=== PATIENT | female | born 1980 | race Caucasian/White ===

== ENCOUNTER → 2017-02-19 | Outpatient (CLI) | payer BC ==
[2017-02-19 11:59] LABS: Follicle Stimulating Hormone 5.5 mIU/mL; Prolactin 6.7 ng/mL (3.0-18.6)
[2017-02-19 12:56] LABS: Appearance,Urine Clear (Clear); Bilirubin,Urine Negative (Negative); Glucose,Urine (UA) Negative (Negative); Ketones,Urine Negative (Negative); Leukocyte Esterase,Urine Negative (Negative); Nitrite,Urine Negative (Negative); Protein,Urine Negative (Negative); Specific Gravity,Urine 1.015 (1.001-1.035); UA Billing (MACRO vs. MICRO) CHEM; Urobilinogen,Urine <2.0 mg/dL (<2.0)
== END | disposition home or self-care (01) ==
LOC: LABWHC1 10:50
PROVIDERS: ATTEND Obstetrics & Gynecology
DX: N92.0 Excessive and frequent menstruation with regular cycle (principal)
CPT/HCPCS: 36415; 81003; 83001; 83002; 84146; 84443; 87086; 87491; 87591

== ENCOUNTER → 2017-06-09 | Outpatient (CLI) | payer BC ==
[2017-06-09 14:51] LABS: Basophils % (A) 1 %; CH 34.9; CHCM 36.3; Eosinophils # (A) 0.2 k/uL (0-0.7); Eosinophils % (A) 2 %; HCT 45.2 % (34.0-46.0); HDW 2.24; HGB 15.7 gm/dL (11.4-16.0); Luc # (Auto) 0.12; Luc % (Auto) 2; Lymphocytes # (A) 1.9 k/uL (1.0-4.8); Lymphocytes % (A) 27 %; MCH 33.4 pg (25.0-35.0); MCHC 34.6 g/dL (31.0-37.0); MCV 96.4 fL (80.0-100.0); Mean Platelet Volume 7.6; Monocytes # (A) 0.5 k/uL (0-1.0); Monocytes % (A) 7 %; Neutrophils # (A) 4.2 k/uL (1.3-7.7); Neutrophils % (A) 62 %; RBC 4.69 m/uL (3.80-5.40); RDW 12.8 % (11.5-15.5); WBC 6.8 k/uL (3.8-10.6); WBC (Perox) 7.29
[2017-06-09 15:12] LABS: Anion Gap 12 mmol/L; Blood Urea Nitrogen 14 mg/dL (7-17); Calcium 10.3 mg/dL (8.4-10.2); Carbon Dioxide 23 mmol/L (22-30); Chloride 107 mmol/L (98-107); Glucose 95 mg/dL (74-99); Non-African American GFR(MDRD) >60 (>60 ml/min/1.73 sqM); Potassium 4.8 mmol/L (3.5-5.1); Sodium 142 mmol/L (137-145)
== END | disposition home or self-care (01) ==
LOC: LABWHC1 14:25
PROVIDERS: ATTEND Obstetrics & Gynecology
DX: Z01.818 Encounter for other preprocedural examination (principal)
CPT/HCPCS: 80048; 85025

== ENCOUNTER 2017-06-16 06:01 | Observation (INO) | payer BC ==
[2017-06-09 16:35] VITALS: BMI 20.9
[~2017-06-16 06:01] MED LIST: DEXAMETHASONE SOD PHOSPHATE 10 MG/ML 1 ML VIAL IV ONE; MIDAZOLAM 2 MG/2 ML VIAL IV PRN; ONDANSETRON 4 MG/2 ML VIAL IVP ONE; SCOPOLAMINE 1.5MG/72HR PATCH TRANSDERM ONE; ceFAZolin 2 GM in SODIUM CHLORIDE 0.9% 100 ML IVPB ONE
[2017-06-16] MEDS: LACTATED RINGERS 1,000 ML IV SCH ×2 (06:34→14:09)
[2017-06-16] MEDS ORDERED: LIDOCAINE 1% 20 ML VIAL (10MG/ML) FOR IV START INTRADERMA ONE (06:34)
--- NOTE | 2017-06-16 07:38 | P.HPOB ---
History of Present Illness H&P Date: 06/16/17 Chief Complaint: Pelvic pain Millie is a 36-year-old female with a history of pelvic pain. She has dysmenorrhea and passes golfball size clots with her menses over the last year. Symptoms have worsened and his got to the point where she is unable to function when she is on her cycles the pain is so bad. She is scheduled for robotic-assisted laparoscopic hysterectomy with removal of fallopian tubes possible PERRY possible bilateral oophorectomy risks/benefits/alternatives reviewed with the patient in detail and did include but were not limited to damage to bladder, bowel, vascular injuries, nerve injuries, bleeding, infection. On physical exam vital signs are stable and afebrile. Heart regular , lungs clear, extremities without pain. Abdomen is soft positive bowel sounds are noted. Pelvic exam reveals significant pain with exam there is no specific cervical motion tenderness but overall uterus on palpation causes her significant pain. Assessment pelvic pain. Plan robotic-assisted laparoscopic hysterectomy with bilateral salpingectomy PERRY/bso Past Medical History Past Medical History: No Reported History Additional Past Medical History / Comment(s): UP TO URINATE IN NOC. HEAVY MENSES, PELVIC PAIN. History of Any Multi-Drug Resistant Organisms: None Reported Past Surgical History: Breast Surgery, Tubal Ligation Additional Past Surgical History / Comment(s): LAPAROSCOPY, D&C, LEFT BREAST BIOPSY Past Anesthesia/Blood Transfusion Reactions: Motion Sickness, Postoperative Nausea & Vomiting (PONV) Additional Past Anesthesia/Blood Transfusion Reaction / Comment(s): SEVERE PONV. Smoking Status: Current some day smoker - Past Family History Mother Family Medical History: No Reported History Medications and Allergies Home Medications Medication Instructions Recorded Confirmed Type ALPRAZolam [Xanax] 0.25 mg PO BID PRN 06/09/17 06/16/17 History Naproxen [Naprosyn] 500 mg PO Q12HR PRN 06/09/17 06/09/17 History Stool Softner 1 tab PO DAILY PRN 06/09/17 History Allergies Allergy/AdvReac Type Severity Reaction Status Date / Time amoxicillin Allergy Rash/Hives Verified 06/16/17 06:16 latex Allergy Rash/Hives/Swells Verified 06/16/17 06:16 Up Exam Osteopathic Statement: *. No significant issues noted on an osteopathic structural exam other than those noted in the History and Physical/Consult. - Vital Signs Vital signs: Vital Signs Temp Pulse Resp BP Pulse Ox 06/16/17 06:13 98.6 F 89 16 113/76 99
[2017-06-16] MEDS ORDERED: MIDAZOLAM 2 MG/2 ML VIAL ONE (07:43)
[2017-06-16] MEDS ORDERED: NEOSTIGMINE 1 MG/ML 10 ML VIAL ONE (07:43)
[2017-06-16] MEDS ORDERED: fentaNYL (PF) 50 MCG/ML 2 ML AMP ONE (07:43)
[2017-06-16] MEDS ORDERED: ROCURONIUM BROMIDE 10 MG/ML 10 ML VIAL IV ONE (07:43)
[2017-06-16] MEDS ORDERED: PROPOFOL 10 MG/ML 20 ML VIAL IV ONE (07:43)
[2017-06-16] MEDS ORDERED: GLYCOPYRROLATE 0.2 MG/ML 2 ML VIAL ONE (07:43)
[2017-06-16] MEDS ORDERED: BUPIVACAINE (PF) 0.25% 30 ML VIAL SQ ONE (08:03)
[2017-06-16] MEDS ORDERED: ONDANSETRON 4 MG/2 ML VIAL IVP PRN (09:04)
[2017-06-16] MEDS ORDERED: Acetaminophen-Codeine 300-30mg TAB PO PRN (09:04)
[2017-06-16] MEDS ORDERED: SIMETHICONE 80 MG CHEWABLE PO PRN (09:04)
--- NOTE | 2017-06-16 09:16 | P.OP ---
Date of Procedure: 06/16/17 Preoperative Diagnosis: Pelvic pain Postoperative Diagnosis: Same with adhesions to the right ovary to the pelvic sidewall Procedure(s) Performed: Robotic-assisted laparoscopic hysterectomy with right salpingo-oophorectomy and left salpingectomy Anesthesia: ROSANNA Surgeon: Abebe Pike Junior Accountant Bookkeeper #1: Radha Angeles Estimated Blood Loss (ml): 25 IV fluids (ml): 700 Urine output (ml): 500 Pathology: other (Uterus, cervix, bilateral fallopian tubes and right ovary) Condition: stable Disposition: floor Operative Findings: Right ovary was firmly adherent to the right pelvic sidewall was actually attached quite strongly to the right pelvic sidewall in and removing the the fallopian tube and trying to remove the ovary off the sidewall the decision to remove the ovary was made as her pain was coming from this area and this type of adhesion and the weight was draped across the tissues adding tension likely was her source of pain Description of Procedure: Patient was taken to the operating suite where a general anesthetic was found be adequate. She was prepped and draped in the normal sterile fashion placed in dorsal lithotomy position. Initially a weighted speculum was inserted into the vagina and anterior lip the cervix identified and grasped with a single- tooth tenaculum and the uterus was sounded to 9 cm and the cup sizes spent be 3 cm. Frida manipulator was then inserted without difficulty and the Haney cath was placed. Other instruments were then removed. There were sutures placed at 3 and 9 hands clock position to assist in removal of the uterus. Once this was accomplished gloves were changed and attention was turned to the abdominal portion procedure. 2 mL of quarter percent Marcaine were then injected periumbilically and through this injected anesthetic a 5 mm skin incision was made and through this incision under direct visualization with an optical trocar and sleeve the camera was inserted. Once peritoneal placement was assured gas was left fully insufflate the abdomen and patient was placed in steep Trendelenburg position. Observations pelvis were then noted. There was some light adhesions along the left sigmoid colon and the nasal salpinx area these were bluntly and sharply dissected free. Observations the right ovary were noted right ovary was firmly attached to the right pelvic sidewall and on tension from the uterus. As this is the specific area where her pain was a decision to remove the ovary was made. First however the left fallopian tube was elevated and the nasal Salpinx tissue was cauterized and cut dissecting back to the utero-ovarian ligament which was cauterized and cut preserving the left ovary. Once this was accomplished round ligament was cauterized and cut and sterilization of the lateral side of the left side of uterus was done. Blood vessels were then cauterized. Bladder flap was then identified elevated and entered with Metzenbaum scissors. Undermining this tissue with [place] grasper was then done and the Metzenbaum scissors were used to incise the tissue across the face of the uterus and the bladder was dissected out of the operative field. Attention was then turned the right side of the uterus the infundibula pelvic lid was then identified elevated as best as possible and due to how tightly the ovary was adherent to the tissues cauterized tissue was cut and multiple small bites were taken to make sure that we are well away from the ureter and any vascularity. Once this was accomplished this tissue was dissected back through the broad ligament tissues freeing the ovary and then separately the fallopian tube had to be dissected away from the pelvic sidewall as well as it had strong adhesions to this tissue as well. Once this was a done the round ligament was cauterized and transected and skeletonization of the right side of the uterus was then done. Once this was accomplished right vessels were also cauterized. Uterus is then retroverted and cup was identified. Bladder was verified out of the operative field and an anterior colpotomy was then made. Moving in a counterclockwise fashion maintaining excellent hemostasis throughout Metzenbaum scissors were used to follow the couple around the cervix. When necessary again cauterization with [place] grasper was then done to maintain excellent hemostasis throughout the removal process. Once 360 was completed uterus fallopian tubes and right ovary brought into the vagina to maintain pneumoperitoneum. Pelvis was suction irrigated seeing no significant bleeding, instruments were exchanged and a carlos a suture cut and Jalen grasper placed in the abdomen under direct visualization did to OB lock suture was then used to close the vaginal cuff in a running fashion. Once this was accomplished pelvis was again suction irrigated no bleeding is noted. Instruments were then removed and gas was allowed to expel from the abdomen. 5 deep breaths were provided during this process. Dr. Angeles close the incisions then with 4-0 Vicryl subcuticularly and the remaining 8 mL of quarter percent Marcaine was injected around the incisions. I did do a cystoscopy and excellent flow was noted from both ureteral jets. Sponge, lap, needle counts were all correct 2. Patient was then taken to the recovery room in stable and satisfactory condition.
[2017-06-16] MEDS ORDERED: ONDANSETRON 4 MG/2 ML VIAL IVP ONE (09:45)
[2017-06-16] MEDS: HYDROmorphone 0.5 MG/0.5 ML SYRINGE IVP PRN ×2 (09:45→09:55)
[2017-06-16] MEDS: KETOROLAC 30 MG/ML 1 ML VIAL IVP PRN ×3 (10:32→21:01)
[2017-06-16] MEDS: Acetaminophen-Codeine 300-30mg TAB PO PRN ×2 (12:09→17:51)
[2017-06-16] MEDS ORDERED: HYDROcodone/APAP 5-325MG 1 EACH TAB PO PRN (18:15)
[2017-06-16] MEDS: SENNOSIDES-DOCUSATE SODIUM 1 EACH TAB PO SCH (21:01)
[2017-06-17] MEDS: HYDROcodone/APAP 5-325MG 1 EACH TAB PO PRN ×2 (00:14→06:10)
[2017-06-17] MEDS: KETOROLAC 30 MG/ML 1 ML VIAL IVP PRN (04:02)
[2017-06-17 07:09] LABS: Basophils % (A) 0 %; CHCM 35.5; Eosinophils # (A) 0.1 k/uL (0-0.7); Eosinophils % (A) 1 %; HCT 37.9 % (34.0-46.0); HDW 2.22; HGB 13.2 gm/dL (11.4-16.0); Luc # (Auto) 0.16; Luc % (Auto) 2; Lymphocytes # (A) 2.3 k/uL (1.0-4.8); Lymphocytes % (A) 27 %; MCH 33.4 pg (25.0-35.0); MCHC 34.7 g/dL (31.0-37.0); Monocytes # (A) 0.6 k/uL (0-1.0); Monocytes % (A) 7 %; Neutrophils # (A) 5.3 k/uL (1.3-7.7); Neutrophils % (A) 63 %; RBC 3.94 m/uL (3.80-5.40); WBC 8.5 k/uL (3.8-10.6); WBC (Perox) 9.06
--- NOTE | 2017-06-17 07:36 | P.DS ---
Providers Date of admission: 06/17/17 00:12 Expected date of discharge: 06/17/17 Attending physician: Abebe Pike Primary care physician: Nava Hayden [facility] Course: Millie is doing very well postop day 1. She is ambulating, voiding, and she is tolerating her diet. She is passing flatus. We'll plan discharged home today. Prescription for Beaver and Motrin have been provided. All questions are answered and discharge instruction thoroughly reviewed. Vital signs stable and afebrile. Heart regular, lungs clear, extremities without pain. Abdomen is soft and docked bowel sounds are noted. Assessment postop day 1. Plan discharged home follow up with me in approximately 2 weeks Patient Condition at Discharge: Good Plan - Discharge Summary New Discharge Prescriptions: New HYDROcodone/APAP 5-325MG [Beaver 5-325] 1 tab PO Q4HR PRN #30 tab PRN Reason: Pain Ibuprofen [Motrin] 600 mg PO Q6HR PRN #30 tab PRN Reason: Pain No Action Stool Softner 1 tab PO DAILY PRN PRN Reason: Constipation ALPRAZolam [Xanax] 0.25 mg PO BID PRN PRN Reason: Anxiety Naproxen [Naprosyn] 500 mg PO Q12HR PRN PRN Reason: Pain Discharge Medication List ALPRAZolam [Xanax] 0.25 mg PO BID PRN 06/09/17 [History] Naproxen [Naprosyn] 500 mg PO Q12HR PRN 06/09/17 [History] Stool Softner 1 tab PO DAILY PRN 06/09/17 [History] HYDROcodone/APAP 5-325MG [Beaver 5-325] 1 tab PO Q4HR PRN #30 tab 06/17/17 [Rx] Ibuprofen [Motrin] 600 mg PO Q6HR PRN #30 tab 06/17/17 [Rx] Follow up Appointment(s)/Referral(s): Abebe Pike DO [Doctor of Osteopathic Medicine] - 2 Weeks Activity/Diet/Wound Care/Special Instructions: Difficulty, limit stairs and driving, and pelvic rest. If any high temperatures , heavy bleeding, or severe pain call my office Discharge Disposition: HOME SELF-CARE
[2017-06-17] MEDS: SENNOSIDES-DOCUSATE SODIUM 1 EACH TAB PO SCH (07:50)
[2017-06-17 08:34] VITALS: BP 105/68; PULSE 81; RESP 19; TEMP 98.7
== END 2017-06-17 10:10 | disposition home or self-care (01) ==
LOC: OR 06:01 → 6PED 09:14 → OR 06-17 00:12 → 6PED 06-17 00:12
PROVIDERS: ADMIT Obstetrics & Gynecology; ATTEND Obstetrics & Gynecology
DX: N94.6 Dysmenorrhea, unspecified (principal); N83.11 Corpus luteum cyst of right ovary; N92.0 Excessive and frequent menstruation with regular cycle; N83.8 Other noninflammatory disorders of ovary, fallopian tube and broad ligament; F17.200 Nicotine dependence, unspecified, uncomplicated; Z88.0 Allergy status to penicillin; Z91.040 Latex allergy status
CPT/HCPCS: 58571; S2900; 81025; 85025; 86850; 86900; 86901; 88307

== ENCOUNTER → 2018-01-06 | Outpatient (CLI) | payer BC ==
--- NOTE | 2018-01-06 12:22 | MM ---
Reason for exam: clinical finding. Last mammogram was performed 3 years ago. History: Benign US LT VAD breast biopsy of the left breast, October 08, 2011. Took hormonal contraceptives beginning at age 15. Physical Findings: Nurse Summary: 0.5cm, 1cm nodule in the right breast at 12 and 6 o'clock, a 0.5cm nodule in the left breast at 12 o'clock and 2 o'clock (nurse dw). MG 3D Diag Mammo W/Cad THANH Bilateral CC, MLO, and LM view(s) were taken. Prior study comparison: January 04, 2015, bilateral MG diagnostic mammo w CAD THANH. The breast tissue is extremely dense which could obscure a lesion on mammography. There is no discrete abnormality including area of conceren. No significant new findings when compared with previous films. These results were verbally communicated with the patient and result sheet given to the patient on 01/06/18. ASSESSMENT: Incomplete: need additional imaging evaluation, BI-RAD 0 RECOMMENDATION: Ultrasound of both breasts. Manage patient on a clinical basis.
--- NOTE | 2018-01-06 12:25 | USB ---
Reason for exam: additional evaluation requested from abnormal screening. History: Benign US LT VAD breast biopsy of the left breast, October 08, 2011. Took hormonal contraceptives beginning at age 15. US Breast Limited BILAT Right breast ultrasound includes all four quadrants, the retroareolar region and axilla. Finding demonstrates a 10 x 5 x 7mm oval, cystic lesion at 12 o'clock BB and a 5 x 3 x 5mm oval, solid, hypoechoic lesion with adjacent vascularity 4 cm from nipple at 6 o'clock. Left breast ultrasound demonstrates a 7 x 4 x 5mm oval, cystic lesion at 2 o'clock, a 9 x 7 x 5mm oval, solid, hypoechoic lesion at 2 o'clock, a 5 x 4 x 5mm oval, cystic lesion at 2 o'clock and a 9 x 4 x 10mm oval, cystic lesion at 11 o'clock. These results were verbally communicated with the patient and result sheet given to the patient on 01/06/18. ASSESSMENT: Probably benign, BI-RAD 3 RECOMMENDATION: Ultrasound of the right breast in 6 months. (6 o'clock)
== END | disposition home or self-care (01) ==
LOC: RADMAMWWP 10:23
PROVIDERS: ATTEND Internal Medicine
DX: R92.8 Other abnormal and inconclusive findings on diagnostic imaging of breast (principal); N63.0 Unspecified lump in unspecified breast
CPT/HCPCS: 77066; 76642; G0279

== ENCOUNTER → 2018-06-23 | Outpatient (CLI) | payer BC ==
--- NOTE | 2018-06-23 11:17 | MM ---
Reason for exam: follow-up at short interval from prior study. Last mammogram was performed 5 months ago. History: Benign US LT VAD breast biopsy of the left breast, October 08, 2011. Took hormonal contraceptives beginning at age 15. Physical Findings: Nurse Summary: 1 x 0.5cm nodule in the right breast at 12 o'clock and 0.5 x 0.5cm nodule in the right breast at 6 o'clock (nurse ts). MG 3D Diag Mammo W/Cad THANH Bilateral CC and MLO view(s) were taken. Technologist: RT Radha (R)(M) Prior study comparison: January 06, 2018, bilateral MG 3d diag mammo w/cad THANH. January 04, 2015, bilateral MG diagnostic mammo w CAD THANH. The breast tissue is extremely dense which could obscure a lesion on mammography. Previous mammotome biopsy in the left breast. There is no discrete abnormality. These results were verbally communicated with the patient and result sheet given to the patient on 06/23/18. ASSESSMENT: Incomplete: need additional imaging evaluation, BI-RAD 0 RECOMMENDATION: Ultrasound of the right breast. (palpable)
--- NOTE | 2018-06-23 11:22 | USB ---
Reason for exam: additional evaluation requested from abnormal screening. History: Benign US LT VAD breast biopsy of the left breast, October 08, 2011. Took hormonal contraceptives beginning at age 15. US Breast RT Right complete breast ultrasound includes all four quadrants, the retroareolar region and axilla. Finding demonstrates a 0.7 x 1.0 x 0.5cm oval, cystic, stable lesion at 12 o'clock BB, a 0.3 x 0.3 x 0.2cm oval, hypoechoic lesion at 1 o'clock, a 1.0 x 0.9 x 0.6cm oval, irregular, mixed lesion at 6 o'clock, painful, for which a biopsy is recommended, a 0.5 x 0.6 x 0.3cm oval lesion too small to characterize at 6:30, a 0.4 x 0.3 x 0.2cm oval, irregular lesion too small to characterize at 8 o'clock and a 0.7 x 0.6 x 0.3cm oval, cystic lesion at 11 o'clock. These results were verbally communicated with the patient and result sheet given to the patient on 06/23/18. ASSESSMENT: Suspicious, BI-RAD 4 RECOMMENDATION: Ultrasound core biopsy of the right breast. (6 o'clock lesion, maybe adjacent 6:30 area) [address] Hayden with mammographic findings and has scheduled an appointment for the patient for 07/16/18 at 9:[address] Bassett. Biopsy scheduled for 07/02/18 at 2 o'clock. PRELIMINARY REPORT CALLED AND FAXED TO DR. BASSETT ON 06/23/18.
== END | disposition home or self-care (01) ==
LOC: RADMAMWWP 09:03
PROVIDERS: ATTEND Internal Medicine
DX: R92.8 Other abnormal and inconclusive findings on diagnostic imaging of breast (principal)
CPT/HCPCS: 77062; 77066

== ENCOUNTER → 2018-07-02 | Day surgery (SDC) | payer BC ==
[2018-07-02 13:45] VITALS: RESP 16; BMI 20.1
[2018-07-02 15:19] VITALS: BP 100/67; PULSE 83; TEMP 98.2
--- NOTE | 2018-07-02 17:03 | USB ---
EXAMINATION TYPE: US biopsy breast VAD RT, US biopsy breast add'l VAD RT, MG postbiopsy diagnostic mammo RT wo CAD DATE OF EXAM: 07/02/2018 CLINICAL HISTORY: 37-year-old female R92.8 ABN Mammogram. Palpable tender areas in the right breast. TECHNIQUE: Two-site ultrasound guided core biopsy of the right breast. COMPARISON: 06/23/2080 FINDINGS: The procedure of ultrasound guided core biopsy was explained to the patient. Benefits, alternatives, and risks were discussed. An informed consent was then obtained. The patient was placed in supine positioning for imaging and for the procedure. The overlying skin was prepped and draped in usual sterile fashion. Lidocaine buffered with bicarbonate was used as anesthetic into the skin and subcutaneous tissue up to area of concern in the right breast, in turn. SITE 1 - 6:00 - Under ultrasound guidance, a 13-gauge vacuum assisted Mammotome Elite biopsy gun device was used to obtain 5 core samples. Following this, a coil clip was left in lesion. SITE 2 - 6:30 - Under ultrasound guidance, a 13-gauge vacuum assisted Mammotome Elite biopsy gun device was used to obtain 5 core samples. The majority of the lesion was removed with the multiple passes. Following this, a ribbon clip was left in lesion. The patient tolerated the procedure well without any immediate complication. The patient was kept in the radiology department for short stay after the procedure and then discharged home in stable condition. Post procedure mammogram shows both coil and ribbon clips near the 6:00 position adjacent to each other. IMPRESSION: Successful, uncomplicated ultrasound guided (2 site) core biopsy of the 6:00 and 6:30, tender and palpable areas of concern in the right breast, full pathology results to follow. Pathology Results: Benign A. RIGHT BREAST, 6:00, ULTRASOUND GUIDED CORE BIOPSY: Fibrocystic changes including fibrosis and sclerosing adenosis. B. RIGHT BREAST, 6:30, ULTRASOUND GUIDED CORE BIOPSY: Fibroadenoma. Recommendation Follow up ultrasound of the right breast in 6 months. LAURA
== END ==
LOC: RADUSWWP 13:23
PROVIDERS: ATTEND Surgery
DX: D24.1 Benign neoplasm of right breast (principal)
CPT/HCPCS: 88305; 77065; 19083; 19084; A4648; J2001

== ENCOUNTER 2020-07-16 11:12 | Emergency (ER) | payer BC ==
[2020-07-16 11:18] VITALS: TEMP 98.7
[2020-07-16] MEDS ORDERED: SODIUM CHLORIDE 0.9% 1,000 ML IV STA (11:25)
[2020-07-16] MEDS ORDERED: KETOROLAC 15 MG/ML 1 ML VIAL IVP STA (11:25)
[2020-07-16] MEDS ORDERED: METOCLOPRAMIDE 5 MG/ML 2 ML VIAL IVP STA (11:26)
[2020-07-16] MEDS ORDERED: diphenhydrAMINE 50 MG/ML 1 ML VIAL IVP STA (11:26)
--- NOTE | 2020-07-16 11:46 | ED ---
Headache HPI - General Chief Complaint: Headache Stated Complaint: migraine Time Seen by Provider: 07/16/20 11:20 Mode of arrival: ambulatory Limitations: no limitations - History of Present Illness Initial Comments: Patient is a 39-year-old female presenting to the emergency Department with complaints of a migraine that has been increasing over the past 3 days. Patient states she has had migraines in the past which feels similar. She states she's had a small headache for the last 1-2 weeks but the last 3 days have increased significantly. She admits to nausea, light sensitivity. She denies any vomiting, abdominal pain, diarrhea. She denies any fever or chills. She denies any neck pain. She states she took [id number] Excedrin with no relief of symptoms. She denies being secondary to hysterectomy. She has no further complaints at this time. - Related Data Home Medications Medication Instructions Recorded Confirmed Acetaminophen/Caffeine [Excedrin 2 tab PO BID PRN 07/16/20 07/16/20 Tension Headache Cplt] Previous Rx's Medication Instructions Recorded Butalb/APAP/Caff 50-325-40Mg 1 tab PO Q4H PRN #10 tablet 07/16/20 [Fioricet 50-325-40] Allergies Allergy/AdvReac Type Severity Reaction Status Date / Time amoxicillin Allergy Rash/Hives Verified 07/16/20 13:27 latex Allergy Rash/Hives/Swells Verified 07/16/20 13:27 Up Review of Systems ROS Statement: Those systems with pertinent positive or pertinent negative responses have been documented in the HPI. ROS Other: All systems not noted in ROS Statement are negative. Past Medical History Past Medical History: No Reported History Additional Past Medical History / Comment(s): UP TO URINATE IN NOC. HEAVY MENSES, PELVIC PAIN. History of Any Multi-Drug Resistant Organisms: None Reported Past Surgical History: Breast Surgery, Hysterectomy, Tubal Ligation Additional Past Surgical History / Comment(s): LAPAROSCOPY, D&C, LEFT BREAST BIOPSY D/C 2002 Past Anesthesia/Blood Transfusion Reactions: Motion Sickness, Postoperative Nausea & Vomiting (PONV) Additional Past Anesthesia/Blood Transfusion Reaction / Comment(s): SEVERE PONV. Past Psychological History: No Psychological Hx Reported Past Alcohol Use History: Occasional Past Drug Use History: None Reported - Past Family History Mother Family Medical History: No Reported History General Exam - General Exam Comments Initial Comments: GENERAL: Patient is well-developed and well-nourished. Patient is nontoxic and in no acute distress, but does look uncomfortable, sitting in dark room. HEAD: Atraumatic, normocephalic. EYES: Pupils equal round and reactive to light, extraocular movements intact, sclera anicteric, conjunctiva are normal. Eyelids were unremarkable. ENT: TMs normal, nares patent, oropharynx clear without exudates. Moist mucous membranes. NECK: Normal range of motion, supple without lymphadenopathy or JVD. LUNGS: Unlabored respirations. Breath sounds clear to auscultation bilaterally and equal. No wheezes rales or rhonchi. HEART: Regular rate and rhythm without murmurs, rubs or gallops. ABDOMEN: Soft, nontender, normoactive bowel sounds. No guarding, no rebound. No masses appreciated. : Deferred MUSCULOSKELETAL: Normal extremities with adequate strength and normal range of motion, no pitting or edema. No clubbing or cyanosis. NEUROLOGICAL: Patient is alert and oriented x 3. Motor and sensory are also intact. Cranial nerves II through XII grossly intact. Symmetrical smile. Normal speech, normal gait. PSYCH: Normal mood, normal affect. SKIN: Warm, Dry, normal turgor, no rashes or lesions noted. Limitations: no limitations Course Vital Signs 07/16/20 07/16/20 07/16/20 11:16 12:46 14:15 Temperature 98.7 F 98.7 F Pulse Rate 107 H 88 84 Respiratory 18 18 16 Rate Blood Pressure 121/82 117/67 114/69 O2 Sat by Pulse 98 100 100 Oximetry Medical Decision Making - Medical Decision Making Patient is a 39-year-old female here with a migraine medicine increasing over the past 3 days. She does have history of migraines which feels similar. She denies being secondary to hysterectomy. Her exam reveals no acute process, no neuro deficits. Patient was given fluids, typical migraine cocktail, pain control. Patient reports improvement in her symptoms. We did discuss trial of Fioricet for continued migraines. Patient is agreement with this plan of care. She is stable for discharge. She can follow up with her PCP. Return parameters were discussed with the patient she verbalized understanding. Case discussed with Dr. Browning. Disposition Clinical Impression: Headache Disposition: HOME SELF-CARE Condition: Stable Instructions (If sedation given, give patient instructions): Acute Headache (ED) Additional Instructions: Please return to the Emergency Department if symptoms worsen or any other concerns. Trial of Fioricet for future headaches. Follow-up with PCP. Prescriptions: Butalb/APAP/Caff 50-325-40Mg [Fioricet 50-325-40] 1 tab PO Q4H PRN #10 tablet PRN Reason: Headache Is patient prescribed a controlled substance at d/c from ED?: No Referrals: Nava Hayden MD [Primary Care Provider] - 1-2 days
[2020-07-16] MEDS ORDERED: MORPHINE SULFATE 4 MG/ML SYRINGE IVP STA (12:31)
[2020-07-16] MEDS ORDERED: ONDANSETRON 4 MG ODT STARTER PACK 2 TAB BTL PO STA (14:02)
[2020-07-16 14:16] VITALS: BP 114/69; PULSE 84; RESP 16
== END 2020-07-16 14:18 | disposition home or self-care (01) ==
LOC: EC 11:12
DX: G43.909 Migraine, unspecified, not intractable, without status migrainosus (principal); Z88.0 Allergy status to penicillin; Z91.040 Latex allergy status
CPT/HCPCS: 99283; 96374; 96375 ×3; 96361; J2270; J1200; J2765; J1885; S0119

== ENCOUNTER 2022-12-18 12:37 | Observation (INO) | payer BC ==
[2022-12-18 12:53] LABS: Basophils % (A) 1 %; Eosinophils # (A) 0.2 k/uL (0-0.7); Eosinophils % (A) 3 %; HCT 43.6 % (34.0-46.0); HGB 15.9 gm/dL (11.4-16.0); Lymphocytes % (A) 32 %; MCH 33.1 pg (25.0-35.0); MCHC 36.5 g/dL (31.0-37.0); MCV 90.7 fL (80.0-100.0); Mean Platelet Volume 7.6; Monocytes # (A) 0.2 k/uL (0-1.0); Monocytes % (A) 4 %; Neutrophils # (A) 3.6 k/uL (1.3-7.7); Neutrophils % (A) 59 %; Platelet Count 257 k/uL (150-450); RBC 4.81 m/uL (3.80-5.40); RDW 11.6 % (11.5-15.5); WBC 6.1 k/uL (3.8-10.6)
--- NOTE | 2022-12-18 12:57 | ED ---
General Adult HPI - General Chief complaint: Chest Pain Stated complaint: Chest pain Time Seen by Provider: 12/18/22 12:38 Source: patient, RN notes reviewed, old records reviewed Mode of arrival: EMS Limitations: no limitations - History of Present Illness Initial comments: 42 -year-old female who presents for evaluation of nausea and pain between her shoulder blades. Patient states symptoms began at 3 AM. She made an appointment see her primary care physician for these ongoing symptoms. EKG was obtained and there was concern for ST segment elevation. Patient has no prior history of CAD. Patient states she had nausea without vomiting. No significant abdominal pain. No fever. No known sick contacts. Patient does not have central chest pain. She was transported as a priority 1, given aspirin and nitroglycerin during transport. I was able to review the prehospital EKG which is very poor quality, there was some concern for ST segment changes in the anterior leads this is not present on initial EKG in the emergency department. - Related Data Home Medications Medication Instructions Recorded Confirmed Sertraline [Zoloft] 50 mg PO HS 12/18/22 12/18/22 Allergies Allergy/AdvReac Type Severity Reaction Status Date / Time amoxicillin Allergy Rash/Hives Verified 12/18/22 13:11 latex Allergy Rash/Hives/Swells Verified 12/18/22 13:11 Up Penicillins Allergy Rash/Hives Verified 12/18/22 13:11 Review of Systems ROS Statement: Those systems with pertinent positive or pertinent negative responses have been documented in the HPI. ROS Other: All systems not noted in ROS Statement are negative. Past Medical History Past Medical History: No Reported History Additional Past Medical History / Comment(s): UP TO URINATE IN NOC. HEAVY MENSES, PELVIC PAIN. History of Any Multi-Drug Resistant Organisms: None Reported Past Surgical History: Breast Surgery, Hysterectomy, Tubal Ligation Additional Past Surgical History / Comment(s): LAPAROSCOPY, D&C, LEFT BREAST BIOPSY D/C 2002 Past Anesthesia/Blood Transfusion Reactions: Motion Sickness, Postoperative Nausea & Vomiting (PONV) Additional Past Anesthesia/Blood Transfusion Reaction / Comment(s): SEVERE PONV. Past Psychological History: No Psychological Hx Reported Smoking Status: Former smoker Past Alcohol Use History: Occasional Past Drug Use History: None Reported - Past Family History Mother Family Medical History: No Reported History General Exam Limitations: no limitations General appearance: alert, in no apparent distress Head exam: Present: atraumatic, normocephalic Eye exam: Present: normal appearance, PERRL ENT exam: Present: normal exam Neck exam: Present: normal inspection. Absent: tenderness, meningismus Respiratory exam: Present: normal lung sounds bilaterally. Absent: respiratory distress, wheezes Cardiovascular Exam: Present: regular rate, normal rhythm GI/Abdominal exam: Present: soft. Absent: distended, tenderness, guarding Extremities exam: Present: normal inspection, normal capillary refill Neurological exam: Present: alert, oriented X3 Psychiatric exam: Present: normal affect, normal mood Skin exam: Present: warm, dry, intact. 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 Repeat EKG at 1312, sinus rhythm with a ventricular rate of 81, HI interval 152, QRS duration 88, QTC 398, no ST segment elevation Medical Decision Making - Medical Decision Making Was pt. sent in by a medical professional or institution ([facility], POLEYARD SUPERVISOR, urgent care, hospital, or skilled nursing...) When possible be specific @ -[No] Did you speak to anyone other than the patient for history (EMS, parent, family, police, friend...)? What history was obtained from this source @ -EMS Did you review nursing and triage notes (agree or disagree)? Why? @ -[I reviewed and agree with nursing and triage notes] Were old charts reviewed (outside hosp., previous admission, EMS record, old EKG, old radiological studies, urgent care reports/EKG's, skilled nursing records)? Report findings @ -[No old charts were reviewed] Differential Diagnosis (chest pain, altered mental status, abdominal pain women, abdominal pain men, vaginal bleeding, weakness, fever, dyspnea, syncope, headache, dizziness, GI bleed, back pain, seizure, CVA, palpatations, mental health, musculoskeletal)? @ -Differential Chest Pain: Stable Angina, Unstable Angina, STEMI, NSTEMI Aortic Dissection, Pneumothorax, Musculoskeletal, Esophageal Spasm GERD, Cholecystitis, Pancreatitis, Zoster, this is not meant to be an all-inclusive list. EKG interpreted by me (3pts min.). @ -[As above] X-rays interpreted by me (1pt min.). @ -Chest x-ray negative for pneumothorax or focal pneumonia CT interpreted by me (1pt min.). @ -CT showing normal caliber aorta without acute findings. U/S interpreted by me (1pt. min.). @ -[None done] What testing was considered but not performed or refused? (CT, X-rays, U/S, labs)? Why? @ -[None] What meds were considered but not given or refused? Why? @ -[None] Did you discuss the management of the patient with other professionals (professionals i.e. , PA, POLEYARD SUPERVISOR, lab, RT, psych nurse, addiction social worker, phlebotomist associate, teacher, armor officer, keycase assembler)? Give summary @ -Discussed with the admitting physician Dr. Saini Was smoking cessation discussed for >3mins.? @ -[No] Was critical care preformed (if so, how long)? @ -[No] Were there social determinants of health that impacted care today? How? (Homelessness, low income, unemployed, alcoholism, drug addiction, transportation, low edu. Level, literacy, decrease access to med. care, senior living, rehab)? @ -[No] Was there de-escalation of care discussed even if they declined (Discuss DNR or withdrawal of care, Hospice)? DNR status @ -[No] What co-morbidities impacted this encounter? (DM, HTN, Smoking, COPD, CAD, Cancer, CVA, ARF, Chemo, Hep., AIDS, mental health diagnosis, sleep apnea, morbid obesity)? @ -[None] Was patient admitted / discharged? Hospital course, mention meds given and route, prescriptions, significant lab abnormalities, going to OR and other pertinent info. @ -32-year-old female presenting with nausea, chest discomfort and pain between her shoulder blades. This began at 3 AM this morning. She brought to the emergency department by paramedics after being given aspirin and nitroglycerin without improvement in her symptoms. EKG is sinus rhythm without ST segment elevation. This is repeated twice to the emergency department. She has normal CBC, normal CMP, negative initial troponin. She has some minimally positive d- dimer at 0.[address] of the chest was obtained which was negative for any acute findings. She will be observed for serial cardiac enzymes. Undiagnosed new problem with uncertain prognosis? @ -[No] Drug Therapy requiring intensive monitoring for toxicity (Heparin, Nitro, Insulin, Cardizem)? @ -[No] Were any procedures done? @ -[No] Diagnosis/symptom? @ -[Chest pain] Acute, or Chronic, or Acute on Chronic? @ -[Acute] Uncomplicated (without systemic symptoms) or Complicated (systemic symptoms)? @ -[Uncomplicated] Side effects of treatment? @ -[No] Exacerbation, Progression, or Severe Exacerbation? @ -[No] Poses a threat to life or bodily function? How? (Chest pain, USA, NC, pneumonia, PE, COPD, DKA, ARF, appy, cholecystitis, CVA, Diverticulitis, Homicidal, Suicidal, threat to staff... and all critical care pts) @ -[Chest pain, cardiac ischemia, noncardiac causes of chest pain.] - Lab Data Result diagrams: 12/18/22 12:42 12/18/22 12:42 Lab Results 12/18/22 12/18/22 12/18/22 Range/Units 12:42 12:42 12:42 WBC 6.1 (3.8-10.6) k/uL RBC 4.81 (3.80-5.40) m/uL Hgb 15.9 (11.4-16.0) gm/dL Hct 43.6 (34.0-46.0) % MCV 90.7 (80.0-100.0) fL MCH 33.1 (25.0-35.0) pg MCHC 36.5 (31.0-37.0) g/dL RDW 11.6 (11.5-15.5) % Plt Count 257 (150-450) k/uL MPV 7.6 Neutrophils % 59 % Lymphocytes % 32 % Monocytes % 4 % Eosinophils % 3 % Basophils % 1 % Neutrophils # 3.6 (1.3-7.7) k/uL Lymphocytes # 2.0 (1.0-4.8) k/uL Monocytes # 0.2 (0-1.0) k/uL Eosinophils # 0.2 (0-0.7) k/uL Basophils # 0.0 (0-0.2) k/uL PT 10.8 (9.0-12.0) sec INR 1.0 (<1.2) APTT 23.0 (22.0-30.0) sec D-Dimer (<0.60) mg/L FEU Sodium 138 (137-145) mmol/L Potassium 3.7 (3.5-5.1) mmol/L Chloride 106 (98-107) mmol/L Carbon Dioxide 22 (22-30) mmol/L Anion Gap 10 mmol/L BUN 6 L (7-17) mg/dL Creatinine 0.50 L (0.52-1.04) mg/dL Est GFR (CKD-EPI)AfAm >90 (>60 ml/min/1.73 sqM) Est GFR (CKD-EPI)NonAf >90 (>60 ml/min/1.73 sqM) Glucose 102 H (74-99) mg/dL Calcium 9.6 (8.4-10.2) mg/dL Magnesium 2.0 (1.6-2.3) mg/dL Total Bilirubin 1.1 (0.2-1.3) mg/dL AST 20 (14-36) U/L ALT 41 H (4-34) U/L Alkaline Phosphatase 64 (38-126) U/L Troponin I (0.000-0.034) ng/mL Total Protein 7.4 (6.3-8.2) g/dL Albumin 4.7 (3.5-5.0) g/dL Amylase 69 (30-110) U/L Lipase 40 (23-300) U/L Influenza Type A (PCR) (Not Detectd) Influenza Type B (PCR) (Not Detectd) RSV (PCR) (Not Detectd) SARS-CoV-2 (PCR) (Not Detectd) 12/18/22 12/18/22 12/18/22 Range/Units 12:42 13:13 13:26 WBC (3.8-10.6) k/uL RBC (3.80-5.40) m/uL Hgb (11.4-16.0) gm/dL Hct (34.0-46.0) % MCV (80.0-100.0) fL MCH (25.0-35.0) pg MCHC (31.0-37.0) g/dL RDW (11.5-15.5) % Plt Count (150-450) k/uL MPV Neutrophils % % Lymphocytes % % Monocytes % % Eosinophils % % Basophils % % Neutrophils # (1.3-7.7) k/uL Lymphocytes # (1.0-4.8) k/uL Monocytes # (0-1.0) k/uL Eosinophils # (0-0.7) k/uL Basophils # (0-0.2) k/uL PT (9.0-12.0) sec INR (<1.2) APTT (22.0-30.0) sec D-Dimer 0.57 (<0.60) mg/L FEU Sodium (137-145) mmol/L Potassium (3.5-5.1) mmol/L Chloride (98-107) mmol/L Carbon Dioxide (22-30) mmol/L Anion Gap mmol/L BUN (7-17) mg/dL Creatinine (0.52-1.04) mg/dL Est GFR (CKD-EPI)AfAm (>60 ml/min/1.73 sqM) Est GFR (CKD-EPI)NonAf (>60 ml/min/1.73 sqM) Glucose (74-99) mg/dL Calcium (8.4-10.2) mg/dL Magnesium (1.6-2.3) mg/dL Total Bilirubin (0.2-1.3) mg/dL AST (14-36) U/L ALT (4-34) U/L Alkaline Phosphatase (38-126) U/L Troponin I <0.012 (0.000-0.034) ng/mL Total Protein (6.3-8.2) g/dL Albumin (3.5-5.0) g/dL Amylase (30-110) U/L Lipase (23-300) U/L Influenza Type A (PCR) Not Detected (Not Detectd) Influenza Type B (PCR) Not Detected (Not Detectd) RSV (PCR) Not Detected (Not Detectd) SARS-CoV-2 (PCR) Not Detected (Not Detectd) Disposition Clinical Impression: Chest pain Disposition: ADMITTED IP TO THIS HOSP Condition: Stable Is patient prescribed a controlled substance at d/c from ED?: No Referrals: None,Stated [REFERRING] - 1-2 days Time of Disposition: 15:09
--- NOTE | 2022-12-18 13:02 | XR ---
EXAMINATION TYPE: XR chest 1V portable DATE OF EXAM: 12/18/2022 COMPARISON: NONE HISTORY: Chest pain. TECHNIQUE: Single AP portable frontal upright view of the chest is obtained. FINDINGS: Subtle Reticular and reticulonodular increased markings bilaterally . There is no suspiciou s focal air space opacity, pleural effusion, or pneumothorax seen. The cardiac silhouette size is wi thin normal limits. Overlying EKG leads are present. The osseous structures are intact. IMPRESSION: Bilateral increased markings could reflect edema and/or atypical infiltrates. Correlate clinically.
[2022-12-18] MEDS ORDERED: HYDROmorphone 0.5 MG/0.5 ML SYRINGE IVP STA (13:08)
[2022-12-18] MEDS ORDERED: ONDANSETRON 4 MG/2 ML VIAL IVP STA (13:10)
[2022-12-18 13:17] LABS: Prothrombin Time 10.8 sec (9.0-12.0)
[2022-12-18 13:20] LABS: ALT 41 U/L (4-34); AST 20 U/L (14-36); African American GFR (CKD) >90 (>60 ml/min/1.73 sqM); Albumin 4.7 g/dL (3.5-5.0); Alkaline Phosphatase 64 U/L (38-126); Amylase 69 U/L (30-110); Anion Gap 10 mmol/L; Blood Urea Nitrogen 6 mg/dL (7-17); Calcium 9.6 mg/dL (8.4-10.2); Carbon Dioxide 22 mmol/L (22-30); Chloride 106 mmol/L (98-107); Glucose 102 mg/dL (74-99); Lipase 40 U/L (23-300); Non-African American GFR(CKD) >90 (>60 ml/min/1.73 sqM); Sodium 138 mmol/L (137-145); Total Bilirubin 1.1 mg/dL (0.2-1.3); Total Protein 7.4 g/dL (6.3-8.2)
[2022-12-18 13:22] LABS: Potassium 3.7 mmol/L (3.5-5.1)
--- NOTE | 2022-12-18 14:42 | CT ---
EXAMINATION TYPE: CT angio chest DATE OF EXAM: 12/18/2022 COMPARISON: None HISTORY: Chest/back pain. CT DLP: 212.2 mGycm, Automated exposure control for dose reduction was used. CONTRAST: Performed injected with 60ml mL of Isovue 300. TECHNIQUE: Axial images were obtained at 5 mm thick sections. Reconstructed images are reviewed on [employer] computer in the coronal plane. FINDINGS: Portion of the thyroid visualized is normal. There is a 0.4 cm oval nodule within the left mid lung. Series 406 image 54. No enlarged mediastinal or hilar adenopathy is evident. The ascending aorta diameter at the level o f the main pulmonary artery is 2.7 cm. The main pulmonary artery diameter at the bifurcation is 2.1 cm. No aortic aneurysm or dissection is evident. Limited CT sections are obtained through the upper abdomen. Abdomen is essentially unremarkable. IMPRESSIONS: 1. No acute abnormality CT chest
[2022-12-18] MEDS ORDERED: NALOXONE 0.4 MG/ML 1 ML VIAL IV PRN (15:05)
[2022-12-18] MEDS ORDERED: HYDROmorphone 0.5 MG/0.5 ML SYRINGE IVP PRN (15:05)
[2022-12-18] MEDS ORDERED: COLCHICINE 0.6 MG EACH PO STA (15:58)
--- NOTE | 2022-12-18 16:10 | P.HPIM ---
History of Present Illness H&P Date: 12/18/22 Chief Complaint: Chest pain 42-year-old woman, active smoker, presented with chest pain, nausea, vomiting. Patient says that starting today she developed some chest pressure in the center of her chest with radiation around her bilateral upper chest. She then progressed to having some back pain with radiation to the sub-sternum. She describes a pain as pressure-like. She has associated nausea, and almost vomited 2-3 times in the last 12 hours, but swallowed the emesis before actually expelling it. She reports chills, as well as subjective fevers. She denies palpitations, syncope, presyncope, cough, dyspnea, abdominal pain, constipation, diarrhea, dysuria, dyschezia, numbness/weakness of extremities. In the emergency room, patient was afebrile, 118/71, heart rate 77, 98% on room air. CBC is unremarkable. Cultures are unremarkable. Liver function tests are unremarkable. Troponin is less than 0.012. Coags are unremarkable. D-dimer is 0.57. Influenza A, B, RSV, Covid were negative. Lipase is 40. Chest x-ray shows normal-sized heart, bibasilar increased vascularity concerning for possible interstitial infiltrates. EKG demonstrated sinus rhythm with CO depression in leads 2, 3, aVF, patient pattern in leads 2, 3, aVF. CT of the chest was unremarkable. Case was discussed with the emergency room physician decision was made to admit the patient to observation for chest pain. All Systems reviewed and pertinent positives and negatives noted in HPI, all other symptoms are negative Gen: in no apparent distress, resting comfortably in bed Eyes: PERRL, no scleral injection or icterus HENT: normocephalic, atraumatic, good hearing acuity, moist mucous membranes Neck: no tracheal deviation, full range of motion Resp: good air exchange, breathing comfortably with no accessory muscle use, no tactile fremitus CVS: good distal perfusion x 4, no pitting edema GI: soft, NTTP, ND, no hepatosplenomegaly : no suprapubic tenderness, no CVAT, corbin catheter not present MSK: no clubbing, no cyanosis, no noted contractures of extremities Skin: no noted rashes, petechiae; temperature of skin is appropriate Neuro: moving all extremities without signs of weakness, CN II-XII intact Psych: cooperative, euthymic mood, insight and judgment intact Labs and imaging as above Assessment: Chest pain, atypical - suspicion for acute pericarditis Nausea and vomiting Nicotine abuse Plan: Vital signs reviewed and noted in HPI Labwork reviewed and noted in HPI EKG and chest x-ray personally interpreted in noted in HPI CT of the chest reviewed and noted in HPI Case was discussed with the emergency room physician decision was made to get the patient to observation for chest pain Start colchicine 1.2 mg by mouth once then 0.6 g daily Start zofran 4mg q8h PRN for nausea Ordered troponins every 3 hours Cardiology consulted Ordered echocardiogram Ordered TSH, lipid panel, A1c Monitor on telemetry Patient is full code Past Medical History Past Medical History: No Reported History Additional Past Medical History / Comment(s): UP TO URINATE IN NOC. HEAVY MENSES, PELVIC PAIN. History of Any Multi-Drug Resistant Organisms: None Reported Past Surgical History: Breast Surgery, Hysterectomy, Tubal Ligation Additional Past Surgical History / Comment(s): LAPAROSCOPY, D&C, LEFT BREAST BIOPSY D/C 2002 Past Anesthesia/Blood Transfusion Reactions: Motion Sickness, Postoperative Nausea & Vomiting (PONV) Additional Past Anesthesia/Blood Transfusion Reaction / Comment(s): SEVERE PONV. Past Psychological History: No Psychological Hx Reported Smoking Status: Former smoker Past Alcohol Use History: Occasional Past Drug Use History: None Reported - Past Family History Mother Family Medical History: No Reported History Medications and Allergies Home Medications Medication Instructions Recorded Confirmed Type Sertraline [Zoloft] 50 mg PO HS 12/18/22 12/18/22 History Allergies Allergy/AdvReac Type Severity Reaction Status Date / Time amoxicillin Allergy Rash/Hives Verified 12/18/22 13:11 latex Allergy Rash/Hives/Swells Verified 12/18/22 13:11 Up Penicillins Allergy Rash/Hives Verified 12/18/22 13:11 Physical Exam Osteopathic Statement: *. No significant issues noted on an osteopathic structural exam other than those noted in the History and Physical/Consult. Vitals: Vital Signs Temp Pulse Pulse Resp BP Pulse Ox 12/18/22 15:08 77 18 118/71 98 12/18/22 12:42 82 12/18/22 12:40 98.6 F 84 18 135/76 100 Intake and Output 04/02/0412/18/22 12/18/22 06:59 14:59 22:59 Other: Weight 61.689 kg Results CBC & Chem 7: 12/18/22 12:42 12/18/22 12:42 Labs: Abnormal Lab Results - Last 24 Hours (Table) 12/18/22 Range/Units 12:42 BUN 6 L (7-17) mg/dL Creatinine 0.50 L (0.52-1.04) mg/dL Glucose 102 H (74-99) mg/dL ALT 41 H (4-34) U/L
[2022-12-18] MEDS: SODIUM CHLORIDE 0.9% 1,000 ML IV SCH (17:27)
[2022-12-18] MEDS: ONDANSETRON 4 MG/2 ML VIAL IVP PRN (20:50)
[2022-12-18] MEDS ORDERED: SERTRALINE 50 MG TAB PO SCH (21:00)
[2022-12-18] MEDS: HYDROmorphone 0.5 MG/0.5 ML SYRINGE IVP PRN (21:02)
[2022-12-19] MEDS: HYDROmorphone 0.5 MG/0.5 ML SYRINGE IVP PRN (02:58)
[2022-12-19] MEDS: SODIUM CHLORIDE 0.9% 1,000 ML IV SCH (02:59)
[2022-12-19 07:30] VITALS: BP 105/70; PULSE 74; RESP 16; TEMP 97.9
[2022-12-19] MEDS ORDERED: ACETAMINOPHEN TAB 325 MG TAB PO PRN (08:18)
[2022-12-19] MEDS: ONDANSETRON 4 MG/2 ML VIAL IVP PRN (08:26)
[2022-12-19] MEDS ORDERED: COLCHICINE 0.6 MG EACH PO SCH (09:00)
[2022-12-19] MEDS ORDERED: ASPIRIN-ACET-CAFF 250-250-65MG 1 EACH TAB PO PRN (09:15)
[2022-12-19 09:33] LABS: Basophils # (A) 0.04 X 10*3/uL (0.00-0.10); Basophils % (A) 0.5 %; Eosinophils # (A) 0.22 X 10*3/uL (0.04-0.35); Eosinophils % (A) 2.7 %; HCT 40.5 % (37.2-46.3); HGB 14.1 g/dL (12.0-15.0); Immature Grans, Automated 0.1 %; Lymphocytes # (A) 1.88 X 10*3/uL (0.90-5.00); Lymphocytes % (A) 23.4 %; MCH 32.2 pg (27.0-32.0); MCHC 34.8 g/dL (32.0-37.0); MCV 92.5 fL (80.0-97.0); Mean Platelet Volume 10.1 fL (9.5-12.2); Monocytes # (A) 0.58 X 10*3/uL (0.20-1.00); Monocytes % (A) 7.2 %; NRBC Per 100 WBC 0 /100 WBCS (0.0-0.0); Neutrophils # (A) 5.29 X 10*3/uL (1.80-7.70); Neutrophils % (A) 66.1 %; Platelet Count 244 X 10*3/uL (140-440); RBC 4.38 X 10*6/uL (4.10-5.20); RDW 11.8 % (11.5-14.5); WBC 8.02 X 10*3/uL (4.50-10.00)
[2022-12-19 09:41] LABS: African American GFR (CKD) 123.9 (60.0-200.0); Blood Urea Nitrogen 9.1 mg/dL (9.0-27.0); Calcium 9.2 mg/dL (8.7-10.3); Carbon Dioxide 23.1 mmol/L (20.0-27.5); Chloride 109 mmol/L (96-109); Chol/HDL Ratio 3.54 Ratio; Glucose 91 mg/dL (70-110); LDL Cholesterol,Calculated 89.9 mg/dL (0.0-131.0); Magnesium 2.1 mg/dL (1.5-2.4); Non-African American GFR(CKD) 106.9 (60.0-200.0); Potassium 4.1 mmol/L (3.5-5.5); Sodium 140 mmol/L (135-145)
--- NOTE | 2022-12-19 09:50 | CA ---
Transthoracic Echo Report Name: Leela Hui Age: 42 Gender: F : 1980 Exam Date: 12/19/2022 07:28 Exam Location: [facility] Ht (in): 67 Wt (lb): 136 Ordering Physician: Sage Saini MD Attending/Referring Phys: [employer] Driver Slim Weathers RDCS Procedure CPT: Indications: Chest Pain Cardiac Hx: Technical Quality: Fair Contrast 1: Total Dose (mL): Contrast 2: Total Dose (mL): MEASUREMENTS (Male / Female) Normal Values 2D ECHO LV Diastolic Diameter PLAX 4.3 cm 4.2 - 5.9 / 3.9 - 5.3 cm LV Systolic Diameter PLAX 2.9 cm IVS Diastolic Thickness 1.0 cm 0.6 - 1.0 / 0.6 - 0.9 cm LVPW Diastolic Thickness 0.9 cm 0.6 - 1.0 / 0.6 - 0.9 cm LV Relative Wall Thickness 0.4 RV Internal Dim ED PLAX 2.3 cm M-MODE Aortic Root Diameter MM 2.7 cm AV Cusp Separation MM 1.7 cm DOPPLER AV Peak Velocity 108.6 cm/s AV Peak Gradient 4.7 mmHg LVOT Peak Velocity 97.5 cm/s LVOT Peak Gradient 3.8 mmHg MV Area PHT 3.5 cm??? Mitral E Point Velocity 120.9 cm/s Mitral A Point Velocity 78.3 cm/s Mitral E to A Ratio 1.5 MV Deceleration Time 215.8 ms TR Peak Velocity 219.2 cm/s TR Peak Gradient 19.2 mmHg PV Peak Velocity 64.1 cm/s PV Peak Gradient 1.6 mmHg FINDINGS Left Ventricle Left ventricular wall thickness normal. Left ventricular cavity size normal. Normal left ventricular diastolic filling pattern. Left ventricular ejection fraction is estimated at 55-60 %. Right Ventricle Normal right ventricular size and function. Right ventricular systolic pressure within normal limits. Right Atrium Normal right atrial size. Normal right atrial pressure. Left Atrium Normal left atrial size. Mitral Valve Mitral valve thickened. Mild mitral regurgitation. Aortic Valve Trileaflet aortic valve. No aortic stenosis. No aortic regurgitation. Tricuspid Valve Structurally normal tricuspid valve. Trace tricuspid regurgitation. Pulmonic Valve Structurally normal pulmonic valve. Trace pulmonic regurgitation. Pericardium No pericardial or pleural effusion. Aorta Normal size aortic root and proximal ascending aorta. CONCLUSIONS Normal LV size and systolic function. No significant abnormality in the Doppler exam. No pericardial effusion Previewed by: Dr. Lizzy Alaniz MD (Electronically Signed) Final Date: 19 December 2022 09:49
[2022-12-19 09:58] LABS: Appearance,Urine Clear (Clear); Bilirubin,Urine Negative (Negative); Blood,Urine Negative (Negative); Color,Urine Yellow; Glucose,Urine (UA) Negative (Negative); Ketones,Urine Negative (Negative); Leukocyte Esterase,Urine Negative (Negative); Nitrite,Urine Negative (Negative); PH, Urine 5.5 (5.0-8.0); Protein,Urine Negative (Negative); Specific Gravity,Urine 1.022 (1.001-1.035); Urobilinogen,Urine <2.0 mg/dL (<2.0)
--- NOTE | 2022-12-19 10:04 | P.CRDCN ---
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 Patient woke up with nausea yesterday and was seen by her PCP and due to suspected EKG changes with ST elevation, patient was sent to the hospital for further evaluation. Yesterday, patient also had a tightness where her bra strap lies and thought it was due to pneumonia. Patient denies having any chest pain, shortness of breath. She continues to have nausea and complains of severe headache. EKG sinus rhythm with no acute ST changes. Chest x-ray: Normal CTA of the chest normal Troponin negative 3. CBC within normal limits. CMP within normal limits except for ALT of 41. Noted that BUN is 6 and creatinine 0.5. Potassium is 3.7 magnesium 2.0. Influenza A, influenza B, Covid 19 and RSV not detected Home cardiac medications: None Echocardiogram reveals EF of 55-60%. No significant abnormality. No pericardial effusion. Review Of Systems: At the time of my evaluation: Constitutional: No fever, no chills. No weakness, fatigue or lethargy. EENT: Reports headache. No dizziness. Lungs: No shortness of breath, cough, no sputum production. No wheezing. Cardiovascular: No chest pain, no lower extremity edema. No palpitations. No paroxysmal nocturnal dyspnea. No orthopnea. No lightheadedness or dizziness. No syncopal episodes. Abdominal: No abdominal pain. Reports nausea, vomiting. No diarrhea. No constipation. No bloody or tarry stools. Genitourinary: No dysuria.. No urinary retention. Musculoskeletal: No myalgias. No muscle weakness, no frequent falls. No back pain. No neck pain. Integumentary: No wounds. No rash. No unusual bruising. Neurologic: No aphasia. No facial droop. No change in mentation. No head injury. No headache. Physical examination: Gen: This is a 42-year-old female. She is resting in bed appears to be somewhat uncomfortable secondary to headache VS: reviewed HEENT: Head is atraumatic, normocephalic. Pupils equal, round. Sclerae is anicteric. NECK: Supple. No JVD. . LUNGS: Clear to auscultation. No wheezes or rhonchi. No intercostal retractions. HEART: Regular rate and rhythm. No murmur. No chest wall tenderness. ABDOMEN: Soft No tenderness. EXTREMITIES: No pedal edema. No calf tenderness. NEUROLOGICAL: Patient is awake, alert and oriented x3. Assessment: EKGs have been reviewed and no sign of ST changes No complaints of chest pain Nausea Headache Plan: Excedrin ordered for headache Patient is cleared for discharge and a follow-up with her PCP for outpatient stress testing. Thank you kindly for this consultation. Nurse practitioner note has been reviewed, I agree with documented findings and plan of care. Patient was seen and examined. And complains of severe headache. Past Medical History Past Medical History: No Reported History Additional Past Medical History / Comment(s): UP TO URINATE IN NOC. HEAVY MENSES, PELVIC PAIN. History of Any Multi-Drug Resistant Organisms: None Reported Past Surgical History: Breast Surgery, Hysterectomy, Tubal Ligation Additional Past Surgical History / Comment(s): LAPAROSCOPY, D&C, LEFT BREAST BIOPSY D/C 2002 Past Anesthesia/Blood Transfusion Reactions: Motion Sickness, Postoperative Nausea & Vomiting (PONV) Additional Past Anesthesia/Blood Transfusion Reaction / Comment(s): SEVERE PONV. Past Psychological History: No Psychological Hx Reported Smoking Status: Former smoker Past Alcohol Use History: Occasional Past Drug Use History: None Reported - Past Family History Mother Family Medical History: No Reported History Medications and Allergies Home Medications Medication Instructions Recorded Confirmed Type Sertraline [Zoloft] 50 mg PO HS 12/18/22 12/18/22 History Allergies Allergy/AdvReac Type Severity Reaction Status Date / Time amoxicillin Allergy Rash/Hives Verified 12/18/22 13:11 latex Allergy Rash/Hives/Swells Verified 12/18/22 13:11 Up Penicillins Allergy Rash/Hives Verified 12/18/22 13:11 Physical Exam Vitals: Vital Signs Temp Pulse Pulse Resp BP BP Pulse Ox 12/19/22 08:36 74 12/19/22 07:00 97.9 F 74 16 105/70 100 12/19/22 02:48 98.2 F 80 17 102/68 96 12/18/22 19:31 98.5 F 73 18 98/61 94 L 12/18/22 18:13 97.6 F 75 16 122/80 99 12/18/22 18:12 82 12/18/22 18:06 82 18 144/78 98 12/18/22 15:08 77 18 118/71 98 12/18/22 12:42 82 12/18/22 12:40 98.6 F 84 18 135/76 100 Intake and Output 12/18/22 12/19/22 12/19/22 22:59 06:59 14:59 Output Total 0 Balance 0 Output: Emesis 0 Other: Weight 61.689 kg Results 12/19/22 05:01 12/19/22 05:01 Cardiac Enzymes 12/18/22 12/18/22 12/18/22 Range/Units 12:42 12:42 18:31 AST 20 (14-36) U/L Troponin I <0.012 <0.012 (0.000-0.034) ng/mL 12/18/22 Range/Units 20:32 AST (14-36) U/L Troponin I 0.015 (0.000-0.034) ng/mL Coagulation 12/18/22 Range/Units 12:42 PT 10.8 (9.0-12.0) sec APTT 23.0 (22.0-30.0) sec CBC 12/18/22 Range/Units 12:42 WBC 6.1 (3.8-10.6) k/uL RBC 4.81 (3.80-5.40) m/uL Hgb 15.9 (11.4-16.0) gm/dL Hct 43.6 (34.0-46.0) % Plt Count 257 (150-450) k/uL Comprehensive Metabolic Panel 12/18/22 Range/Units 12:42 Sodium 138 (137-145) mmol/L Potassium 3.7 (3.5-5.1) mmol/L Chloride 106 (98-107) mmol/L Carbon Dioxide 22 (22-30) mmol/L BUN 6 L (7-17) mg/dL Creatinine 0.50 L (0.52-1.04) mg/dL Glucose 102 H (74-99) mg/dL Calcium 9.6 (8.4-10.2) mg/dL AST 20 (14-36) U/L ALT 41 H (4-34) U/L Alkaline Phosphatase 64 (38-126) U/L Total Protein 7.4 (6.3-8.2) g/dL Albumin 4.7 (3.5-5.0) g/dL Current Medications Generic Name Dose Route Start Last Admin Trade Name Nadeen PRN Reason Stop Dose Admin Acetaminophen 650 mg 12/19/22 08:18 12/19/22 08:26 Acetaminophen Tab 325 Mg Tab PO 650 mg Q6HR PRN Administration Fever and/ or Pain Colchicine 0.6 mg 12/19/22 09:00 12/19/22 08:27 Colchicine 0.6 Mg Each PO 0.6 mg DAILY RUDDY Administration Hydromorphone HCl 0.5 mg 12/18/22 20:53 12/19/22 02:58 Hydromorphone 0.5 Mg/0.5 Ml Syringe IVP 0.5 mg Q6HR PRN Administration Pain Sodium Chloride 1,000 mls @ 75 mls/hr 12/18/22 15:15 12/19/22 02:59 Saline 0.9% IV 75 mls/hr .[id number] RUDDY Administration Naloxone HCl 0.2 mg 12/18/22 15:05 Naloxone 0.4 Mg/Ml 1 Ml Vial IV Q2M PRN Opioid Reversal Ondansetron HCl 4 mg 12/18/22 15:05 12/19/22 08:26 Ondansetron 4 Mg/2 Ml Vial IVP 4 mg Q8HR PRN Administration Nausea And Vomiting Sertraline HCl 50 mg 12/18/22 21:00 12/18/22 20:50 Sertraline 50 Mg Tab PO 50 mg HS RUDDY Administration Intake and Output 12/18/22 12/19/22 12/19/22 22:59 06:59 14:59 Output Total 0 Balance 0 Output: Emesis 0 Other: Weight 61.689 kg 12/18/22 12:42 12/18/22 12:42
--- NOTE | 2022-12-19 10:58 | P.DS ---
Providers Date of admission: 12/18/22 15:05 Expected date of discharge: 12/19/22 Attending physician: Sage Saini MD Consults: 12/18/22 15:05 Consult Physician Routine Consulting Provider: Sushil Sevilla Consult Reason/Comments: CP rule out Do you want consulting provider notified?: Yes Primary care physician: [facility] Course: Assessment: Chest pain, atypical - suspicion for acute pericarditis Nausea and vomiting Nicotine abuse Hospital Course: 42-year-old woman, active smoker, presented with chest pain, nausea, vomiting. In the emergency room, patient was afebrile, 118/71, heart rate 77, 98% on room air. CBC is unremarkable. Cultures are unremarkable. Liver function tests are unremarkable. Troponin is less than 0.012. Coags are unremarkable. D-dimer is 0.57. Influenza A, B, RSV, Covid were negative. Lipase is 40. Chest x-ray shows normal-sized heart, bibasilar increased vascularity concerning for possible interstitial infiltrates. EKG demonstrated sinus rhythm with SD depression in leads 2, 3, aVF, patient pattern in leads 2, 3, aVF. CT of the chest was unremarkable. Case was discussed with the emergency room physician decision was made to admit the patient to observation for chest pain. Patient was seen in consultation with cardiology. Patient did not have any evidence of ACS. After evaluation by cardiology, they deemed that patient was stable for discharge and recommended follow-up in the outpatient setting for stress testing. Patient did develop a headache and was receiving Excedrin for migraines as she has had migraines in the past. She was discharged home with appropriate follow-up as recommended. Gen: in no apparent distress, resting comfortably in bed Eyes: PERRL, no scleral injection or icterus HENT: normocephalic, atraumatic, good hearing acuity, moist mucous membranes Neck: no tracheal deviation, full range of motion Resp: good air exchange, breathing comfortably with no accessory muscle use, no tactile fremitus CVS: good distal perfusion x 4, no pitting edema GI: soft, NTTP, ND, no hepatosplenomegaly : no suprapubic tenderness, no CVAT, corbin catheter not present MSK: no clubbing, no cyanosis, no noted contractures of extremities Skin: no noted rashes, petechiae; temperature of skin is appropriate Neuro: moving all extremities without signs of weakness, CN II-XII intact Psych: cooperative, euthymic mood, insight and judgment intact Patient Condition at Discharge: Good Plan - Discharge Summary New Discharge Prescriptions: New [id number] [phone] [Excedrin] 2 each PO Q4HR PRN #30 tab PRN Reason: Headache Ondansetron Odt [Zofran Odt] 4 mg PO Q8HR PRN #30 tab PRN Reason: Nausea Acetaminophen Tab [Tylenol] 650 mg PO Q6HR PRN tab PRN Reason: Fever And/ Or Pain Continue Sertraline [Zoloft] 50 mg PO HS Discharge Medication List Sertraline [Zoloft] 50 mg PO HS 12/18/22 [History] Acetaminophen Tab [Tylenol] 650 mg PO Q6HR PRN tab 12/19/22 [Rx] [id number] [phone] [Excedrin] 2 each PO Q4HR PRN #30 tab 12/19/22 [Rx] Ondansetron Odt [Zofran Odt] 4 mg PO Q8HR PRN #30 tab 12/19/22 [Rx] Follow up Appointment(s)/Referral(s): Lizzy Alaniz MD [STAFF PHYSICIAN] - 1 Week None,Stated [REFERRING] - 1-2 days Discharge Disposition: HOME SELF-CARE
== END 2022-12-19 12:40 | disposition home or self-care (01) ==
LOC: EC 12:37 → 6NMEDSUR 15:05
PROVIDERS: ADMIT Internal Medicine; ATTEND Internal Medicine
DX: R07.89 Other chest pain (principal); G43.909 Migraine, unspecified, not intractable, without status migrainosus; R11.2 Nausea with vomiting, unspecified; M54.9 Dorsalgia, unspecified; F17.200 Nicotine dependence, unspecified, uncomplicated; Z20.822 Contact with and (suspected) exposure to COVID-19; Z79.899 Other long term (current) drug therapy; Z91.040 Latex allergy status; Z88.0 Allergy status to penicillin; Z90.710 Acquired absence of both cervix and uterus; Z98.51 Tubal ligation status; Z98.890 Other specified postprocedural states
CPT/HCPCS: 96376 ×2; 96361; 96374; 96375; 99285; 36415; 94760; 93005; 93306; 85379; 80061; 80053; 80048; 84443; 82150; 83690; 83735 ×2; 84484; 85025 ×2; 85610; 85730; 81003; 83036; 87636; 71045; 71275; G0378 ×2; J2405 ×2; J1170 ×2; Q9967

== ENCOUNTER → 2024-03-10 | Outpatient (CLI) | payer BC ==
--- NOTE | 2024-03-10 13:02 | XR ---
EXAMINATION TYPE: XR cervical spine comp DATE OF EXAM: 03/10/2024 CLINICAL HISTORY: pain COMPARISON: NONE TECHNIQUE: Frontal, lateral, oblique, swimmers, and open mouth view of the cervical spine are obtaine d. FINDINGS: The cervical spine is visualized in its entirety from C1 thru the top of T1 level. It is s atisfactory in alignment without evidence of acute fracture or dislocation. The pre-vertebral soft t issue appears within normal limits. Disc spaces are well preserved. The C1-C2 articulation is unremar kable on the open mouth view. The oblique images are within normal limits. IMPRESSION: No acute fracture or dislocation is seen in the cervical spine.ICD 10 NO FRACTURE, INITI AL EVALUATION
== END | disposition home or self-care (01) ==
LOC: RADXRYALE 11:12
PROVIDERS: ATTEND Physician Assistant
DX: M54.2 Cervicalgia (principal); R20.2 Paresthesia of skin; R42 Dizziness and giddiness
CPT/HCPCS: 72050

== ENCOUNTER → 2024-04-12 | Outpatient (CLI) | payer BC ==
--- NOTE | 2024-04-12 10:32 | CT ---
EXAMINATION TYPE: CT chest wo con DATE OF EXAM: 04/12/2024 COMPARISON: 12/18/2022 HISTORY: 43-year-old female R9 1.1 Lung nodule found on previous scan. TECHNIQUE: Contiguous axial scanning of the chest without IV contrast. Coronal/sagittal reconstructio ns performed. CT DLP: 134.70mGycm. Automatic exposure control utilized for a dose reduction. FINDINGS: Heart is normal size without pericardial effusion. Aorta normal caliber with conventional branching anatomy Some strandy soft tissue in the anterior mediastinum is unchanged, most suggestive of residual thymic tissue. No thoracic lymphadenopathy by CT size criteria. Mild diffuse bronchial wall thickening. Mild biapical pleural parenchymal scarring. No consolidation or pleural effusion. A few scattered 5 mm and smaller pulmonary nodules remain unchanged for 1 year and 3 months. No new p ulmonary nodules are seen. Visualized upper abdomen shows no gross abnormality. Bones: No osseous destructive process. IMPRESSION: 1. Mild diffuse bronchial wall thickening suggests bronchitis or chronic asthma. 2. A few scattered 5 mm and smaller pulmonary nodules remain unchanged for just over one year suggest ing a benign etiology. Recommend additional one-year surveillance follow-up to demonstrate long-term stability.
== END | disposition home or self-care (01) ==
LOC: RADCTMAIN 09:49
PROVIDERS: ATTEND Family Medicine
DX: R91.1 Solitary pulmonary nodule (principal)
CPT/HCPCS: 71250

== ENCOUNTER → 2024-07-19 | Outpatient (CLI) | payer BC ==
--- NOTE | 2024-07-19 16:42 | MR ---
EXAMINATION TYPE: MR cervical spine wo con DATE OF EXAM: 07/19/2024 4:23 PM COMPARISON: None. CLINICAL INDICATION: Female, 43 years old with history of M54.12,M54.2; PHH, Neck pain with numbness into both arms since February 2024, Headaches TECHNIQUE: Multi planar, multi sequence imaging was performed utilizing: T1-weighted, T2-weighted, an d turbo inversion recovery imaging of the cervical spine. IV Contrast: cc (none if empty) FINDINGS: Alignment: The cervical vertebral bodies have preserved heights. Alignment is within normal limits gi swetha patient positioning. Bones: Bone signal is within normal limits. No abnormal bone marrow edema on inversion recovery seque nces. Cord: The spinal cord is unremarkable with regards to their signal intensity and morphology. Discs: Intervertebral disc signal is maintained. C2-C3: No significant disc pathology. The spinal canal is patent. No neural foraminal stenosis. C3-C4: No significant disc pathology. The spinal canal is patent. No neural foraminal stenosis. C4-C5: No significant disc pathology. The spinal canal is patent. No neural foraminal stenosis. C5-C6: No significant disc pathology. The spinal canal is patent. No neural foraminal stenosis. C6-C7: No significant disc pathology. The spinal canal is patent. No neural foraminal stenosis. C7-T1: No significant disc pathology. The spinal canal is patent. No neural foraminal stenosis. Other: None. IMPRESSION: 1. No evidence for disc herniation or significant spinal canal stenosis. 2. Mild disc degeneration with associated osteoarthritic changes. No significant neural foraminal chyna nosis. [facility], , 07/19/2024 4:40 PM
== END | disposition home or self-care (01) ==
LOC: RADMRIMAIN 15:13
PROVIDERS: ATTEND Family Medicine
DX: M47.22 Other spondylosis with radiculopathy, cervical region (principal); M50.10 Cervical disc disorder with radiculopathy, unspecified cervical region
CPT/HCPCS: 72141